=== PATIENT | male | born 1950 | race Caucasian/White ===

== ENCOUNTER 2017-03-24 12:45 | Day surgery (SDC) | payer OTHER ==
[2017-03-24 13:00] VITALS: BMI 23.8
[2017-03-24] MEDS ORDERED: Midazolam 2 MG/2 ML VIAL ONE ×2 (13:10→13:22)
[2017-03-24] MEDS ORDERED: Lidocaine 2% Inj (20ml) ONE (13:10)
[2017-03-24] MEDS ORDERED: Iodixanol 320 MG/ML 100 ML BOTTLE IV ONE ×3 (13:11→14:08)
[2017-03-24] MEDS ORDERED: Iohexol 350mgl/ml 50 ML ONE (13:11)
[2017-03-24] MEDS ORDERED: Iodixanol 320 MG/ML 200 ML BOTTLE IV ONE (13:12)
[2017-03-24] MEDS ORDERED: Nitroglycerin 50mg in D5W 0 MG/0 ML BOTTLE IV ONE (13:17)
[2017-03-24] MEDS ORDERED: Sodium Chloride 0.9% 1,000 ML IV SCH (14:45)
--- NOTE | 2017-03-24 15:52 | CARDCATH ---
PROCEDURE DATE: 03/24/2017 HISTORY: The patient is a 66-year-old male from [facility] with a previous history of myocardial in farction in the past, who presents with a non-STEMI to [facility]. The patient was transferred here for cardiac catheterization. The patient was evaluated several year s later after his cardiac catheterization where he had documented coronary disease, but it was felt t hat nothing could be done. A cardiac catheterization was recommended and the patient was transferred from [place]. PROCEDURE: Left heart catheterization with coronary angiography and left ventriculogram, followed by PTCA and stent of an obtuse marginal branch. The right femoral artery was cannulated with a 6-Portuguese sheath that was exchanged for a 7-Portuguese quinones th for the angioplasty. The findings on catheterization revealed an anterior apical hypokinetic area. Estimated ejection fraction is approximately 40% to 45%. Coronary anatomy revealed a right dominant circulation. The RCA revealed a 70% stenosis in the proximal portion with an 80% stenosis in the posterolateral br anch of the RCA. The left main artery was unremarkable. The LAD revealed a 90% stenoses just before the takeoff of a diagonal vessel. The mid LAD revealed a n additional 80% stenoses followed by another tandem lesion of approximately 80% in his diffusely dis eased LAD vessel. The diagonal vessel revealed 80% stenosis in the proximal portion. The circumflex artery revealed 2 obtuse marginal branches. The first obtuse marginal branch was subt otally occluded. The second obtuse marginal branch was a large vessel that was branching. There were two 90% lesions noted at both bifurcations as well as a 90% stenoses proximal to it. The patient was started on intravenous Angiomax. After extensive evaluation, it was thought the obtu se marginal branch was likely the non-STEMI culprit vessel. An ATW wire was placed into the inferior branch. A 2.5 x 20 mm drug-eluting stent was placed and dep loyed at 14 atmospheres of pressure. Repeat coronary angiography revealed an excellent result in the obtuse marginal branch. The superior branch remained patent with an 80% stenosis at its ostium whic h could not be crossed with a wire. Attempts at crossing the first obtuse marginal branch, which was subtotally occluded, were successful for crossing with a wire, but a 2.0 balloon would not cross given the chronicity of the vessel. Angio-Seal was used to close the femoral artery site. In summary, the procedure was successful for PTCA and stent of the likely culprit vessel for the non- STEMI which was a second obtuse marginal branch. The multiple lesions in the LAD may not be benefici al to revascularize given the old anterior wall myocardial infarction documented on his LV gram and h istory. However, the LAD into the diagonal vessel may provide some benefit to the high lateral wall. In addition, angioplasty of the 2 lesions in the RCA would be beneficial. Given these findings, I would discuss with the patient and his family as well as Dr. Romero about wher e to proceed or how to proceed given that the patient is from [facility] and whether we need to brin g him back for a staged PTCA of the LAD into the diagonal vessel and the RCA. Wiley Ramos MD cc: [id number] TT: 03/24/2017 15:52:10
[2017-03-24 16:49] VITALS: TEMP 97.5
[2017-03-24 19:12] VITALS: BP 132/72; PULSE 81; RESP 19
== END 2017-03-24 21:52 | disposition short-term general hospital (02) ==
LOC: CATH 12:45 → 2RSO 15:10 → CATH 21:52
PROVIDERS: ATTEND Internal Medicine Cardiovascular Disease
DX: I21.4 Non-ST elevation (NSTEMI) myocardial infarction (principal); I25.10 Atherosclerotic heart disease of native coronary artery without angina pectoris; I10 Essential (primary) hypertension; E78.00 Pure hypercholesterolemia, unspecified; E11.9 Type 2 diabetes mellitus without complications; I25.2 Old myocardial infarction
CPT/HCPCS: 82948; 93458; 99152; 99153; C1725 ×2; C1760; C1769 ×2; C1874; C1887; C1894; C2629; C9600; J0583; J1644; J2250; J3010; J7040 ×2; Q9967 ×2

== ENCOUNTER 2017-03-31 13:03 | Observation (INO) | payer SELFPAY ==
[2017-03-31 13:10] VITALS: BMI 23.5
--- NOTE | 2017-03-31 13:45 | ED PDOC ---
Arrival/HPI - General Chief Complaint: Chest Pain Time Seen by Provider: 03/31/17 13:22 Historian: Patient - History of Present Illness Narrative History of Present Illness (Text): 03/31/17 13:53 Patient is a 66 year old male whose past medical history includes NSTEMI with stent 1 week ago, hypertension, diabetes, and CHF, presenting to the emergency department with chest pain described as tightness that began at 11:15 this morning. Patient also complaining of shoulder and neck pain. Patient reports he took 324 mg Aspirin today. 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 ([facility]) Time/Duration: 1-3 hours Symptom Onset: Gradual Symptom Course: Unchanged Modifying Factors (Text): None Past Medical History - Provider Review Nursing Documentation Reviewed: Yes - Cardiac Hx Cardiac Disorders: Yes Hx Congestive Heart Failure: Yes Hx MO: Yes Hx Hypertension: Yes Other/Comment: CAD - Pulmonary Hx Respiratory Disorders: No - Neurological Hx Neurological Disorder: No - HEENT Hx HEENT Disorder: No - Renal Hx Renal Disorder: No - Endocrine/Metabolic Hx Endocrine Disorders: Yes Hx Diabetes Mellitus Type 2: Yes - Hematological/Oncological Hx Blood Disorders: No - Integumentary Hx Dermatological Disorder: No - Musculoskeletal/Rheumatological Hx Musculoskeletal Disorders: Yes - Gastrointestinal Hx Gastrointestinal Disorders: No - Genitourinary/Gynecological Hx Genitourinary Disorders: No - Psychiatric Hx Psychophysiologic Disorder: No Hx Substance Use: No - Surgical History Hx Cardiac Catheterization: Yes Hx Coronary Stent: Yes - Anesthesia Hx Anesthesia: No Family/Social History - Physician Review Nursing Documentation Reviewed: Yes Family/Social History: Unknown Family HX Smoking Status: Never Smoked Hx Alcohol Use: No Hx Substance Use: No Allergies/Home Meds Allergies/Adverse Reactions: Allergies No Known Allergies Allergy (Verified 03/31/17 13:10) Home Medications: Home Meds Medication Instructions Recorded Confirmed Aspirin [Low Dose Aspirin EC] 100 mg PO DAILY 03/24/17 03/31/17 Atorvastatin [Lipitor] 40 mg PO DAILY 03/24/17 03/31/17 Metoprolol Succinate [Toprol XL] 200 mg PO DAILY 03/24/17 03/31/17 Ubidecarenone [Co Q-10] 10 mg PO DAILY 03/24/17 03/31/17 Gliclazide 80 mg PO TID 03/31/17 03/31/17 Zapril 5 mg PO DAILY 03/31/17 03/31/17 metFORMIN [glucOPHAGE] 1,000 mg PO TID 03/31/17 03/31/17 Review of Systems - Review of Systems Eyes: absent: Vision Changes ENT: absent: Hearing Changes Respiratory: absent: SOB, Cough, Sputum, Wheezing Cardiovascular: Chest Pain. absent: Palpitations, Edema, Calf Pain, REYNOSO, Orthopnea, Syncope Gastrointestinal: absent: Abdominal Pain, Constipation, Diarrhea, Nausea, Vomiting Genitourinary Male: absent: Hematuria Musculoskeletal: Neck Pain Skin: absent: Rash Neurological: absent: Headache, Dizziness Endocrine: absent: Diaphoresis Hemo/Lymphatic: absent: Adenopathy Psychiatric: absent: Anxiety Physical Exam Vital Signs Reviewed: Yes Vital Signs Temp Pulse Pulse Resp BP Pulse Ox 03/31/17 15:15 69 18 122/68 100 03/31/17 14:50 75 18 124/72 100 03/31/17 13:05 67 03/31/17 13:03 98.2 F 78 18 133/72 100 Temperature: Afebrile Blood Pressure: Normal Pulse: Regular Respiratory Rate: Normal Appearance: Positive for: Well-Appearing, Non-Toxic, Comfortable Pain Distress: None - Systems Exam Head: Present: Atraumatic, Normocephalic Pupils: Present: PERRL Extroacular Muscles: Present: EOMI Conjunctiva: Present: Normal Mouth: Present: Moist Mucous Membranes Neck: Present: Normal Range of Motion Respiratory/Chest: Present: Clear to Auscultation, Good Air Exchange. No: Respiratory Distress, Accessory Muscle Use Cardiovascular: Present: Regular Rate and Rhythm, Normal S1, S2. No: Murmurs Abdomen: Present: Normal Bowel Sounds. No: Tenderness, Distention, Peritoneal Signs Back: Present: Normal Inspection Upper Extremity: Present: Normal Inspection. No: Cyanosis, Edema Lower Extremity: Present: Normal Inspection. No: Edema Neurological: Present: GCS=15, CN II-XII Intact, Speech Normal Skin: Present: Warm, Dry, Normal Color. No: Rashes Psychiatric: Present: Alert, Oriented x 3, Normal Insight, Normal Concentration Medical Decision Making ED Course and Treatment: Impression: Patient is a 66 year old male whose past medical history includes NSTEMI with stent in obtuse marginal by Dr. Ramos, discharged on aspirin and plavix- took today, hypertension, diabetes, and CHF, presenting to the emergency department with chest pain described as tightness that began at 11:15 this morning. Plan: -- Chest X-ray -- Aspirin -- Labs -- Reassess and disposition Patient's previous records reviewed: Patient was seen in [facility] on 03/24/17 for chest pain He had a catheterization on 03/24/17 but persistent obstructive disease. Patient was advised to return for PCI of RCA and diagonal vs cabg Progress Notes: EKG shows NSR at 77 BPM, no acute ST changes from prior EKG on 03/24/17 03/31/17 15:11 Trop x1 negative. Patient has known occlusive disease. Will transfer to tele observation under Dr. Alvarenga for further evaluation. - Lab Interpretations Lab Results: 03/31/17 13:45 03/31/17 13:45 Lab Results 03/31/17 13:45: Sodium 137, Potassium 5.0, Chloride 102, Carbon Dioxide 26, Anion Gap 14, BUN 21, Creatinine 0.9, Est GFR ( Amer) > 60, Est GFR (Non- Af Amer) > 60, Random Glucose 149 H, Calcium 9.6, Total Bilirubin 0.6, AST 27, ALT 40, Alkaline Phosphatase 75, Lactate Dehydrogenase 448, Total Creatine Kinase 77, Troponin I 0.02, NT-Pro-B Natriuret Pep 2290 H, Total Protein 6.6, Albumin 3.9, Globulin 2.7, Albumin/Globulin Ratio 1.4 03/31/17 13:45: WBC 4.8, RBC 4.57, Hgb 14.0, Hct 39.7 L, MCV 86.9, MCH 30.6, MCHC 35.3, RDW 15.2 H, Plt Count 209, MPV 9.9, Gran % 68.3 H, Lymph % (Auto) 19.2 L, [place] % (Auto) 6.9 H, Eos % (Auto) 5.4 H, Baso % (Auto) 0.2, Gran # 3.28 , Lymph # 0.9 L, [place] # 0.3, Eos # 0.3, Baso # 0.01 - RAD Interpretation Radiology Orders: 03/31/17 13:47 CHEST PORTABLE [RAD] Stat - EKG Interpretation Interpreted by ED Physician: Yes Type: 12 lead EKG - Medication Orders Current Medication Orders: Discontinued Medications Aspirin (Aspirin Chewable) 324 mg PO STAT STA Stop: 03/31/17 13:48 Last Admin: 03/31/17 13:53 Dose: Nitroglycerin (Nitrostat Sl Tab) 0.3 mg SL STAT STA Stop: 03/31/17 14:22 Last Admin: 03/31/17 14:31 Dose: 0.3 mg - Scribe Statement The provider has reviewed the documentation as recorded by the Parker Stanley Provider Scribe Attestation: All medical record entries made by the Parker were at my direction and personally dictated by me. I have reviewed the chart and agree that the record accurately reflects my personal performance of the history, physical exam, medical decision making, and the department course for this patient. I have also personally directed, reviewed, and agree with the discharge instructions and disposition. Disposition/Present on Arrival - Present on Arrival Any Indicators Present on Arrival: Yes History of DVT/PE: No History of Uncontrolled Diabetes: Yes Urinary Catheter: No History of Decub. Ulcer: No History Surgical Site Infection Following: None - Disposition Have Diagnosis and Disposition been Completed?: Yes Diagnosis: Chest pain Disposition: HOSPITALIZED Disposition Time: 15:12 Patient Plan: Observation Patient Problems: Current Active Problems Problem Status Onset Chest pain Acute Condition: FAIR Discharge Instructions (ExitCare): Chest Pain (ED) Referrals: Alberto Romero MD [Primary Care Provider] - Follow up with primary
[2017-03-31 13:56] LABS: ADD MANUAL DIFF? NO
[2017-03-31 14:01] LABS: BASO # 0.01 K/mm3 (0.0-2.0); BASO % 0.2 % (0.0-3.0); EOS # 0.3 (0.0-0.7); EOS % 5.4 % (1.5-5.0); GRAN # 3.28 (1.4-6.5); GRAN % 68.3 % (50.0-68.0); HEMATOCRIT 39.7 % (42.0-52.0); LYMPH # 0.9 (1.2-3.4); LYMPH % 19.2 % (22.0-35.0); MEAN CELL VOLUME 86.9 fL (80.0-105.0); MEAN CORPUSCULAR HEMOGLOBIN 30.6 pg (25.0-35.0); MEAN CORPUSCULAR HGB CONC 35.3 g/dl (31.0-37.0); MEAN PLATELET VOLUME 9.9 fl (7.0-11.0); MONO # 0.3 (0.1-0.6); MONO % 6.9 % (1.0-6.0); PLATELET COUNT 209 10^3/uL (120.0-450.0); RED CELL DISTRIBUTION WIDTH 15.2 % (11.5-14.5); WHITE BLOOD COUNT 4.8 10^3/ul (4.5-11.0)
[2017-03-31 14:09] LABS: ALB/GLOB RATIO 1.4 (1.1-1.8); ALKALINE PHOSPHATASE 75 U/L (38-133); ALT/SGPT 40 U/L (7-56); AST/SGOT 27 U/L (15-59); BILIRUBIN,TOTAL 0.6 mg/dL (0.2-1.3); BLOOD UREA NITROGEN 21 mg/dL (7-21); CALCIUM 9.6 mg/dL (8.4-10.5); CARBON DIOXIDE 26 mmol/L (21-33); CHLORIDE 102 mmol/L (98-107); GFR AFRICAN-AMERICAN > 60; GLUCOSE,RANDOM 149 mg/dL (70-110); SODIUM 137 mmol/L (132-148); TOTAL PROTEIN 6.6 g/dL (5.8-8.3)
[2017-03-31 14:20] LABS: TROPONIN I 0.02 ng/mL
--- NOTE | 2017-03-31 14:28 | RAD ---
HISTORY: chest pain COMPARISON: No prior. FINDINGS: LUNGS: No active pulmonary disease. PLEURA: No significant pleural effusion identified, no pneumothorax apparent. CARDIOVASCULAR: Normal. OSSEOUS STRUCTURES: No significant abnormalities. VISUALIZED UPPER ABDOMEN: Normal. OTHER FINDINGS: None. IMPRESSION: No active disease.
--- NOTE | 2017-03-31 16:11 | CP.PCM.HP ---
<Rajeev Finch - Last Filed: 03/31/17 16:46> History of Present Illness - History of Present Illness History of Present Illness: H&P: Dr. Alvarenga 66yo M with PMHx of DM, HTN, HLD, CHF, HTN, CAD, Previous NV in 1999, Recent NV s/p stent x1 03/24/2017 here for evaluation of chest pain. Patient was at home, not doing any strenous activity when the pain started. Described as sharp, located in the center of the chest, radiates to the left arm, left side of the neck and jaw. Associated with diaphoresis and nausea, no vomiting. Pain was severe in quality, received full dose aspirin and nitroglycerin in the ED and the pain is now mildly improved. Pain is similar to what happened a week ago when he was diagnosed with an NSTEMI and had PCI with EDDY x1 by Dr. Ramos. Patient states that he has been compliant with all his medications over the past week, including ASA and Plavix. He states that his blood sugars have been elevated over the past week. Denies any Abd pain. No Headache, no F/C. No SOB. No Vision disturbances. 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 Ramos Family Hx: denies Social Hx: Denies tob, No illicit drugs, no etoh. Lives in [facility] and is planning was planning on returning home on 03/24/17 NKDA Present on Admission - Present on Admission Any Indicators Present on Admission: No Review of Systems - Review of Systems All systems: reviewed and no additional remarkable complaints except - Constitutional Constitutional: absent: Chills, Fever - EENT Eyes: absent: Blurred Vision, Change in Vision - Cardiovascular Cardiovascular: Chest Pain, Diaphoresis. absent: Dyspnea, Dyspnea on Exertion, Orthopnea - Respiratory Respiratory: absent: Cough, Dyspnea - Gastrointestinal Gastrointestinal: Nausea. absent: Abdominal Pain, Diarrhea, Vomiting - Genitourinary Genitourinary: absent: Dysuria - Musculoskeletal Musculoskeletal: absent: Back Pain, Neck Pain - Neurological Neurological: absent: Dizziness, Numbness - Psychiatric Psychiatric: absent: Anxiety, Confusion Past Patient History - Past Medical History & Family History Past Medical History?: Yes - Past Social History Smoking Status: Never Smoked - CARDIAC Hx Cardiac Disorders: Yes Hx Congestive Heart Failure: Yes Hx Heart Attack: Yes Hx Hypertension: Yes Other/Comment: CAD - PULMONARY Hx Respiratory Disorders: No - NEUROLOGICAL Hx Neurological Disorder: No - HEENT Hx HEENT Problems: No - RENAL Hx Chronic Kidney Disease: No - ENDOCRINE/METABOLIC Hx Endocrine Disorders: Yes Hx Diabetes Mellitus Type 2: Yes - HEMATOLOGICAL/ONCOLOGICAL Hx Blood Disorders: No - INTEGUMENTARY Hx Dermatological Problems: No - MUSCULOSKELETAL/RHEUMATOLOGICAL Hx Musculoskeletal Disorders: Yes - GASTROINTESTINAL Hx Gastrointestinal Disorders: No - GENITOURINARY/GYNECOLOGICAL Hx Genitourinary Disorders: No - PSYCHIATRIC Hx Psychophysiologic Disorder: No Hx Substance Use: No - SURGICAL HISTORY Hx Cardiac Catheterization: Yes Hx Coronary Stent: Yes - ANESTHESIA Hx Anesthesia: No Meds Allergies/Adverse Reactions: Allergies Allergy/AdvReac Type Severity Reaction Status Date / Time No Known Allergies Allergy Verified 03/31/17 13:10 Physical Exam - Constitutional Appears: Well, No Acute Distress - Head Exam Head Exam: ATRAUMATIC, NORMAL INSPECTION, NORMOCEPHALIC - Eye Exam Eye Exam: EOMI, Normal appearance, PERRL. absent: Scleral icterus - ENT Exam ENT Exam: Mucous Membranes Moist - Neck Exam Neck exam: Positive for: Normal Inspection - Respiratory Exam Respiratory Exam: Clear to Auscultation Bilateral. absent: Rales, Rhonchi, Wheezes, Respiratory Distress - Cardiovascular Exam Cardiovascular Exam: RRR, +S1, +S2. absent: JVD - GI/Abdominal Exam GI & Abdominal Exam: Normal Bowel Sounds, Soft. absent: Distended, Guarding, Tenderness - Extremities Exam Extremities exam: Positive for: normal inspection. Negative for: calf tenderness, pedal edema - Neurological Exam Neurological exam: Alert, Normal Gait, Oriented x3 - Psychiatric Exam Psychiatric exam: Normal Affect, Normal Mood - Skin Skin Exam: Dry, Intact, Normal Color, Warm Results - Vital Signs Recent Vital Signs: Last Vital Signs Temp 98.2 F 03/31/17 13:03 Pulse 69 03/31/17 15:15 Resp 18 03/31/17 15:15 BP 122/68 03/31/17 15:15 Pulse Ox 100 03/31/17 15:15 - Labs Result Diagrams: 03/31/17 13:45 03/31/17 13:45 Assessment & Plan - Assessment and Plan (Free Text) Assessment: 66yo M with PMHx of CHF, DM, HTN, HLD, CAD s/p stent on 03/24/17 here for evaluation of chest pain 1. Chest pain r/o ACS in the setting of recent PCI on 03/24/17 with EDDY placed in obtuse marginal Troponin negative x1 f/u repeat troponins On Tele monitoring EKG - no acute changes CXR Consult Cardiology Dr. Ramos, appreciate recs continue ASA Plavix continue metoprolol 2. Hx of HTN resume home meds Metoprolol Lisinopril instead 3. Hx of DM hold home metformin, gliclazide ISS Accuchecks ACHS 4. Hx of HLD continue home atorvastatin 5. PPx Famotidine SCDs Discussed case with Dr. Lyle Finch PGY1 <Linda Alvarenga A - Last Filed: 03/31/17 17:37> Results - Vital Signs Recent Vital Signs: Last Vital Signs Temp 98.2 F 03/31/17 13:03 Pulse 77 03/31/17 16:50 Resp 18 03/31/17 16:50 BP 136/76 03/31/17 16:50 Pulse Ox 100 03/31/17 16:50 - Labs Result Diagrams: 03/31/17 13:45 03/31/17 13:45 Attending/Attestation - Attestation I have personally seen and examined this patient.: Yes I have fully participated in the care of the patient.: Yes I have reviewed all pertinent clinical information: Yes Notes (Text): 03/31/17 17:34 66 year old male with past medical history of CAD s/p recent stent (03/24/17), CHF, diabetes, and hypertension who presents today with complaint of chest pain. Will obtain serial cardiac enzymes and request for cardiology evaluation. Continue with aspirin, plavix, statin, lisinopril and metoprolol. Continue with insulin ss for diabetes while holding metformin for now. Linda Alvarenga MD Hospitalist.
--- NOTE | 2017-03-31 20:17 | CARD ---
APPROVED REPORT EKG Measurement Heart [id number] <Conclusion> Normal sinus rhythm Anterolateral infarct, age undetermined Abnormal ECG
[2017-03-31] MEDS ORDERED: Insulin Lispro (humaLOG) LOW Coverage SC SCH (22:00)
[2017-03-31] MEDS ORDERED: Pneumococcal 23-Valent Vaccine IM ONE (22:01)
[2017-03-31] MEDS: Insulin Reg-LOW-Coverage SC SCH (22:16)
[2017-04-01] MEDS: Insulin Reg-LOW-Coverage SC SCH ×4 (08:03→22:47)
[2017-04-01 09:24] LABS: BLOOD UREA NITROGEN 19 mg/dL (7-21); CALCIUM 9.2 mg/dL (8.4-10.5); CARBON DIOXIDE 25 mmol/L (21-33); CHLORIDE 103 mmol/L (98-107); GFR AFRICAN-AMERICAN > 60; GLUCOSE,RANDOM 189 mg/dL (70-110); POTASSIUM 4.6 mmol/L (3.6-5.0); SODIUM 136 mmol/L (132-148)
[2017-04-01 09:36] LABS: TROPONIN I 0.02 ng/mL
[2017-04-01] MEDS ORDERED: Metoprolol Succinate 100 mg XL Tab PO SCH ×2 (10:00→11:23)
--- NOTE | 2017-04-01 11:54 | CON ---
DATE: 04/01/2017 HISTORY OF PRESENT ILLNESS: The patient is a 66-year-old male who presents with recurrence of chest pain. PAST MEDICAL HISTORY: Includes a recent non-STEMI, which resulted in a PTCA and stent of an occluded obtuse marginal branch of the circumflex artery. The patient suffers from diabetes mellitus and hypercholesterolemia. The patient is from [facility] and has no healthcare coverage in the [place] and on his travel s. He was evaluated in [facility] by his doctors, who refused further revascularization and gave him on ly the option of medical therapy given his diffuse coronary disease. The patient does not smoke. REVIEW OF SYSTEMS: A 14-point was reviewed. His symptoms seem to be better. PHYSICAL EXAMINATION: VITAL SIGNS: Blood pressure is 133/69, heart rate is in the 70s. NECK: Negative JVD. LUNGS: Without rales. HEART: Revealed S1, S2. EXTREMITIES: Without edema. His troponins are all negative x 4. BUN and creatinine are unremarkable. The hemoglobin is 14. EKG shows an old anterior wall CA with nonspecific ST-T changes. IMPRESSION: 1. Recurrent chest pain, which is now resolved. 2. No evidence for acute coronary syndrome. 3. No evidence for subacute thrombosis of the circumflex stent. 4. Severe triple vessel disease with diffuse coronary disease. 5. Diabetes mellitus. 6. Old anterior wall myocardial infarction. Given these findings, given that the patient has no evidence for acute coronary syndrome, we will try to adjust his medications as his initial therapy. The patient and family would like to get him back to [facility]. We will add Imdur to his regimen. We will decrease his Toprol to 100 daily. Wiley Ramos MD cc: [id number] TT: 04/01/2017 11:53:39 Confirmation # [id number] Dictation # [id number]
--- NOTE | 2017-04-01 16:33 | CP.PCM.PN ---
<Rajeev Finch - Last Filed: 04/01/17 16:23> Subjective - Date & Time of Evaluation Date of Evaluation: 04/01/17 Time of Evaluation: 16:23 - Subjective Subjective: Medicine Progress note. Dr. Alvarenga Pt seen and examined at bedside. No acute events overnight. Denies any more chest pain. No N/V/D. tolerating diet. no new complaints. Objective - Vital Signs/Intake and Output Vital Signs (last 24 hours): Temp Pulse Resp BP Pulse Ox 98 F 63 18 124/73 98 04/01/17 12:00 04/01/17 12:00 04/01/17 12:00 04/01/17 12:00 04/01/17 06:00 Intake and Output: 04/01/17 04/01/17 06:59 18:59 Intake Total 120 760 Output Total 150 3 Balance -30 757 - Medications Medications: Current Medications Aspirin (Ecotrin) 81 mg PO DAILY [facility] Last Admin: 04/01/17 09:54 Dose: 81 mg Atorvastatin Calcium (Lipitor) 40 mg PO DAILY [facility] Last Admin: 04/01/17 09:54 Dose: 40 mg Clopidogrel Bisulfate (Plavix) 75 mg PO DAILY [facility] Last Admin: 04/01/17 09:55 Dose: 75 mg Famotidine (Pepcid) 20 mg PO BID [facility] Last Admin: 04/01/17 09:54 Dose: 20 mg Insulin Human Regular (Humulin R Low) 0 units SC ACHS [facility] PRN Reason: Protocol Last Admin: 04/01/17 12:08 Dose: 3 units Isosorbide Mononitrate (Imdur) 60 mg PO DAILY [facility] Last Admin: 04/01/17 12:08 Dose: 60 mg Lisinopril (Zestril) 5 mg PO DAILY [facility] Last Admin: 04/01/17 09:55 Dose: 5 mg Metoprolol Succinate (Toprol Xl) 100 mg PO DAILY [facility] - Labs Labs: 04/01/17 08:30 - Constitutional Appears: Well, No Acute Distress - Head Exam Head Exam: ATRAUMATIC, NORMAL INSPECTION, NORMOCEPHALIC - Eye Exam Eye Exam: EOMI, Normal appearance. absent: Scleral icterus - ENT Exam ENT Exam: Mucous Membranes Moist - Neck Exam Neck Exam: Full ROM - Respiratory Exam Respiratory Exam: Clear to Ausculation Bilateral, NORMAL BREATHING PATTERN. absent: Wheezes - Cardiovascular Exam Cardiovascular Exam: RRR, +S1, +S2. absent: JVD - GI/Abdominal Exam GI & Abdominal Exam: Soft, Normal Bowel Sounds. absent: Distended, Guarding, Tenderness - Extremities Exam Extremities Exam: Normal Inspection - Neurological Exam Neurological Exam: Alert, Awake, Normal Gait, Oriented x3 - Psychiatric Exam Psychiatric exam: Normal Affect, Normal Mood - Skin Skin Exam: Dry, Intact, Normal Color, Warm Assessment and Plan - Assessment and Plan (Free Text) Assessment: 66yo M with PMHx of CHF, DM, HTN, HLD, CAD s/p stent on 03/24/17 here for evaluation of chest pain. Patient and family discussed case with Dr. Ramos today. Patient has triple vessel disease and received PCI of obtuse marginal on 03/24. He would ideally need CABG in order to address the triple vessel disease, however, this would be an elective procedure as an out-patient. Patient and family is requesting a second opinion. Dr. Bryant was requested. 1. Chest pain r/o ACS in the setting of recent PCI on 03/24/17 with EDDY placed in obtuse marginal Troponin negative x3. No evidence of ACS or acute stent occlusion On Tele monitoring EKG - no acute changes CXR Consult Cardiology Dr. Ramos, appreciate recs Start Imdur 60mg PO Daily continue ASA Plavix continue metoprolol, decresed dose 2. Hx of HTN resume home meds Metoprolol, decreased dose Lisinopril instead 3. Hx of DM hold home metformin, gliclazide ISS Accuchecks ACHS. Resume metformin and glicazide upon discharge 4. Hx of HLD continue home atorvastatin 5. PPx Famotidine SCDs Discussed case with Dr. Lyle Finch PGY1 <Linda Alvarenga - Last Filed: 04/01/17 16:52> Objective - Vital Signs/Intake and Output Vital Signs (last 24 hours): Temp Pulse Resp BP Pulse Ox 98 F 63 18 124/73 98 04/01/17 12:00 04/01/17 12:00 04/01/17 12:00 04/01/17 12:00 04/01/17 06:00 Intake and Output: 04/01/17 04/01/17 06:59 18:59 Intake Total 120 760 Output Total 150 3 Balance -30 757 - Medications Medications: Current Medications Aspirin (Ecotrin) 81 mg PO DAILY [facility] Last Admin: 04/01/17 09:54 Dose: 81 mg Atorvastatin Calcium (Lipitor) 40 mg PO DAILY [facility] Last Admin: 04/01/17 09:54 Dose: 40 mg Clopidogrel Bisulfate (Plavix) 75 mg PO DAILY [facility] Last Admin: 04/01/17 09:55 Dose: 75 mg Famotidine (Pepcid) 20 mg PO BID [facility] Last Admin: 04/01/17 09:54 Dose: 20 mg Insulin Human Regular (Humulin R Low) 0 units SC ACHS [facility] PRN Reason: Protocol Last Admin: 04/01/17 12:08 Dose: 3 units Isosorbide Mononitrate (Imdur) 60 mg PO DAILY [facility] Last Admin: 04/01/17 12:08 Dose: 60 mg Lisinopril (Zestril) 5 mg PO DAILY [facility] Last Admin: 04/01/17 09:55 Dose: 5 mg Metoprolol Succinate (Toprol Xl) 100 mg PO DAILY [facility] - Labs Labs: 04/01/17 08:30 Attending/Attestation - Attestation I have personally seen and examined this patient.: Yes I have fully participated in the care of the patient.: Yes I have reviewed all pertinent clinical information, including history, physical exam and plan: Yes Notes (Text): 04/01/17 16:46 66 year old male with past medical history of CAD with triple vessel disease, recent NSTEMI s/p stent (03/24/17), CHF, diabetes, and hypertension who presented with complaint of chest pain. Serial cardiac enyzmes were negative and ACS has been ruled out. His chest pain has resolved. He is on aspirin, plavix, statin and metoprolol. He was seen by cardiology who has added imdur. He is on insulin ss for diabetes. His metformin is currently on hold. I did have discussion with both daughter at bedside and questions were answered. They are requesting for second cardiology opinion which was requested. Linda Alvarenga MD Hospitalist.
--- NOTE | 2017-04-01 22:16 | CON ---
DATE: 04/01/2017 REASON FOR CONSULTATION: Chest pains. HISTORY OF PRESENT ILLNESS: The patient is a 66-year-old male who is a [place] and lives in [place]. He visited the [place] recently. He has been suffering from congestive heart failur e and was treated medically for that. No cardiac catheterization prior to his arrival to the [facility]. The patient was admitted recently with non-ST elevation myocardial infarction to [facility] and underwent cardiac catheterization and successful drug-eluting stent to the culprit lesion w hich is second obtuse marginal branch. The patient was noted to have significant proximal and mid LA D as well as distal right coronary artery disease at that time and the plan was for either CABG or st aged PCI in the future. The patient presented because of recurring chest pain. DE was ruled out. SOCIAL HISTORY: The patient is a nonsmoker, nondrinker. MEDICATIONS: Aspirin 81 mg once a day, Imdur 60 mg once a day, Lipitor 40 mg once a day, Plavix 75 m g once a day, Toprol-XL 100 mg once a day, Zestril 5 mg once a day. PHYSICAL EXAMINATION: GENERAL: The patient is an elderly male who does not appear to be in any distress at this time. VITAL SIGNS: Blood pressure 124/73, heart rate 63, temperature 98, respiration 18. HEENT: Normocephalic. NECK: No JVD. CHEST: Clear. HEART: S1, S2 regular. EXTREMITIES: No edema. LABORATORY DATA: SMA-7 is within normal limits except for glucose of 149. ProBNP is 2209 all tropon ins are not in the elevated range. Hemoglobin and hematocrit are 14 and 39.7. White count and plate let count are within normal limits. EKG revealed sinus rhythm, old anteroseptal DE. ASSESSMENT: 1. Coronary artery disease status post recent drug-eluting stenting to the second obtuse marginal br anch, which was the culprit lesion for the patient's recent acute myocardial infarction. 2. Ischemic cardiomyopathy. 3. Significant proximal and mid left anterior descending as well as significant distal right coronar y artery lesion. RECOMMENDATIONS: Continue current aspirin, Imdur, Lipitor, Plavix, Toprol-XL and . The family opted to go for open heart surgery rather than staged PCI and Dr. Doran was contacted to accept the patient for transfer to [facility]. Gustavo Bryant MD cc: [id number] TT: 04/01/2017 22:16:21 Confirmation # [id number] Dictation # [id number] mn
[2017-04-02 01:05] VITALS: BP 111/61; RESP 18; TEMP 98; O2SAT 97
[2017-04-02 02:36] VITALS: PULSE 63
== END 2017-04-02 06:58 | disposition short-term general hospital (02) ==
LOC: ED 13:03 → ERH 15:16 → 2RSO 18:22
PROVIDERS: ADMIT Internal Medicine; ATTEND Internal Medicine
DX: R07.9 Chest pain, unspecified (principal); I11.0 Hypertensive heart disease with heart failure; I50.9 Heart failure, unspecified; I21.4 Non-ST elevation (NSTEMI) myocardial infarction; I25.10 Atherosclerotic heart disease of native coronary artery without angina pectoris; I25.5 Ischemic cardiomyopathy; E78.5 Hyperlipidemia, unspecified; E11.9 Type 2 diabetes mellitus without complications; E78.00 Pure hypercholesterolemia, unspecified; Z79.84 Long term (current) use of oral hypoglycemic drugs; Z95.5 Presence of coronary angioplasty implant and graft
CPT/HCPCS: 36415; 71010; 80048; 80053; 82550; 82948; 83036; 83615; 83880; 84484; 85025; 93005; 99285; G0378